=== PATIENT | female | born 1975 | race Caucasian/White ===

== ENCOUNTER → 2018-06-20 16:45 | Outpatient (CLI) | payer OTHER, SELFPAY ==
--- NOTE | 2018-06-20 16:46 | BI_ITS ---
MAMMOGRAPHY - BILATERAL SCREENING 3-D KORTNEY SYNTHESIS REASON FOR EXAM: Female, 43 years old. Bilateral Screening 3-D tomosynthesis PERTINENT HISTORY: Grandmother with breast cancer.. TECHNIQUE: 2-D mammograms and 3-D Kortney synthesis of the breast (s) were performed. CAD was performed. COMPARISON: 12/01/2016 FINDINGS: The breast composition is heterogeneously dense that can obscure small breast masses. Scattered benign calcifications are seen. No dense spiculated masses or suspicious microcalcifications are identified. No architectural distortion is identified. There is no skin thickening or retraction. There has been no significant change since the prior study. BI/SCREENING MAMM (CAD), BILAT IMPRESSION: No mammographic signs of malignancy. Routine yearly mammograms recommended. ASSESSMENT CATEGORY: BIRADS Category 2: Benign. A letter regarding these results will be sent to the patient by the facility within 30 days. FOLLOW UP RECOMMENDATION: Yearly follow up mammogram recommended. (A) Approximately 10% of breast cancers are not detected by mammography. A normal mammogram should not delay biopsy of a clinically suspicious abnormality. Electronically Signed: Juan Luis Rios MD at 7:48 EDT , Service support ,
== END ==
PROVIDERS: Family Provider Family Medicine; PCP Family Medicine; Visit Provider Obstetrics & Gynecology
DX: Z12.31 Encounter for screening mammogram for malignant neoplasm of breast (principal)
CPT/HCPCS: 77063; 77067

== ENCOUNTER → 2018-11-01 10:04 | Outpatient (CLI) | payer OTHER, SELFPAY ==
--- NOTE | 2018-11-01 10:09 | RAD_ITS ---
STUDY: X-RAY - THORACIC SPINE REASON FOR EXAM: Female, 43 years old. With the lower thoracic pain for 6 months after a broad both right. TECHNIQUE: 3 view(s) of the thoracic spine were obtained. COMPARISON: None. FINDINGS: Normal kyphosis of the thoracic spine. There is no substantial scoliosis. Normal thoracic vertebrae and endplates. Normal disc space heights. There is no evidence of acute fracture or loss of vertebral axial height. The soft tissue structures are unremarkable. RAD/Thoracic Spine 3 Views IMPRESSION: Normal x-ray examination of the thoracic spine. Electronically Signed: Jose Bautista DO at 21:04 EST Tel [phone], Service support ,
== END ==
LOC: MTRAD 10:08 → HPRAD 10:11
PROVIDERS: Family Provider Family Medicine; PCP Family Medicine; Referring Provider Family Medicine; Visit Provider Family Medicine
DX: M54.6 Pain in thoracic spine (principal)
CPT/HCPCS: 72072

== ENCOUNTER 2018-11-16 14:45 | Outpatient (RCR) | payer OTHER, SELFPAY ==
--- NOTE | 2018-02-28 18:50 | MASS.EVAL ---
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 She was referred for massage therapy with a diagnosis of muscle ache. She reports pain in her head,neck and shoulders primarily. She describes the pain as an ache or tension. She presents today with no complaints; however, explains that most days she suffers from muscle tension. Her medications include Trintellix and control. She states that her health is very good with no limits in daily activities. She denies any disc bulge or fusion. OBJECTIVE: Upon examination and palpation I found this patient to have tightness throughout her suboccipitals, trap muscles, scalenes, levators, pectorals and rhomboids. Her thoracic and lumbar paraspinals were tight and ropey. Her first treatment consisted of MFR, muscle stripping and PNMT to her cervicals. A heat pack was used to ease muscle tension. ASSESMENT: Using various techniques I was able to achieve very good muscle release. This patient tolerated deep pressure well and relaxed easily. PLAN: I plan to see this patient on an as-needed basis for a total of 10 visits in 2018. I will focus on her head, neck and shoulders. Jihan Carranza LMT
--- NOTE | 2018-02-28 19:01 | MASS.EVAL_ITS ---
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 She was referred for massage therapy with a diagnosis of muscle ache. She reports pain in her head,neck and shoulders primarily. She describes the pain as an ache or tension. She presents today with no complaints; however, explains that most days she suffers from muscle tension. Her medications include Trintellix and control. She states that her health is very good with no limits in daily activities. She denies any disc bulge or fusion. OBJECTIVE: Upon examination and palpation I found this patient to have tightness throughout her suboccipitals, trap muscles, scalenes, levators, pectorals and rhomboids. Her thoracic and lumbar paraspinals were tight and ropey. Her first treatment consisted of MFR, muscle stripping and PNMT to her cervicals. A heat pack was used to ease muscle tension. ASSESMENT: Using various techniques I was able to achieve very good muscle release. This patient tolerated deep pressure well and relaxed easily. PLAN: I plan to see this patient on an as-needed basis for a total of 10 visits in 2018. I will focus on her head, neck and shoulders. Jihan Carranza LMT
--- NOTE | 2018-05-04 16:00 | DT_ITS ---
This patient was seen during an EMR downtime April 30, 2018 - May 07, 2018. This patient may have a combination of paper and electronic documentation or all paper documentation. All documentation is viewable within the e-chart portion of [facility] for each patient visit.
--- NOTE | 2018-11-23 14:52 | MASS.DISCH ---
Massage Therapy Discharge Summary: Discharge Date: 11/23/2018 Benji was seen for a massotherapy evaluation on 02/09/2018 with the diagnosis of muscle ache. She was treated with five sessions of massage therapy consisting of deep pressure soft tissue techniques, myofascial release and trigger point compression to her cervical, thoracic, lower back, upper extremities and hips. She responded well to the therapy by reporting decreased tension and pain throughout her head, neck, shoulders. Her goals for therapy were met throughout the treatment sessions. At this time this patient is being discharged from our care at [facility] facility. Jihan Carranza LMT
== END 2018-11-26 08:45 | disposition home or self-care (01) ==
LOC: MASS 14:45
PROVIDERS: Family Provider Family Medicine; PCP Family Medicine; Visit Provider Family Medicine
DX: M79.1 Myalgia (principal)
CPT/HCPCS: 97124

== ENCOUNTER → 2019-04-04 08:42 | Outpatient (CLI) | payer OTHER, SELFPAY ==
[2019-04-04 08:30] VITALS: BMI 25.9
--- NOTE | 2019-04-04 08:52 | RAD_ITS ---
STUDY: X-RAY - LEFT FOOT CLINICAL: Female, 43 years old. Pain along the fourth and fifth digits following injury. TECHNIQUE: 3 view(s) of the foot. COMPARISON: None. FINDINGS: Normal talus, calcaneus, and tarsal bones. Normal visualized subtalar, talonavicular, calcaneocuboid, tarsal and tarsometatarsal articulations. Normal metatarsi. Normal metatarsophalangeal joint of the great toe. Normal tibial and fibular sesamoid bones. Normal interphalangeal joint of the great toe. Normal phalanges of the great toe. Normal second through fifth metatarsophalangeal joints. Nondisplaced oblique fracture of the mid portion of the proximal phalanx of the fourth digit as well as a nondisplaced transverse fracture along the distal aspect of the proximal phalanx of the fifth digit. The soft tissue structures are unremarkable. RAD/Foot min 3 Views IMPRESSION: Nondisplaced oblique fracture of the midportion of the proximal phalanx of the fourth digit as well as a nondisplaced transverse fracture along the distal aspect of the proximal phalanx of the fifth digit. Electronically Signed: Chandra Juan, at 9:25 EDT , Service support ,
== END ==
PROVIDERS: Family Provider Family Medicine; PCP Family Medicine; Referring Provider Physician Assistant; Visit Provider Physician Assistant
DX: M79.675 Pain in left toe(s) (principal)
CPT/HCPCS: 73630

== ENCOUNTER → 2019-04-19 | Outpatient (CLI) | payer OTHER, SELFPAY ==
[2019-04-04 09:19] VITALS: BMI 25.9
--- NOTE | 2019-04-19 09:28 | RAD_ITS ---
STUDY: X-RAY - LEFT FOOT CLINICAL: Fracture. TECHNIQUE: 3 view(s) of the foot. COMPARISON: Radiographs 04/04/2019. FINDINGS: Normal talus, calcaneus, and tarsal bones. Normal visualized subtalar, talonavicular, calcaneocuboid, tarsal and tarsometatarsal articulations. Normal metatarsi. Normal metatarsophalangeal joint of the great toe. Normal tibial and fibular sesamoid bones. Normal interphalangeal joint of the great toe. Normal phalanges of the great toe. Normal second through fifth metatarsophalangeal joints. There is no interval change of the nondisplaced fractures of the proximal phalanges of the fourth and fifth digits. The soft tissue structures are unremarkable. RAD/Foot min 3 Views IMPRESSION: No interval change of the fourth and fifth proximal phalangeal fractures. Electronically Signed: Gutierrez Quiñonez MD at 15:30 EDT Tel , Service support ,
== END | disposition home or self-care (01) ==
LOC: HPRAD 09:27
PROVIDERS: Family Provider Family Medicine; PCP Family Medicine; Referring Provider Orthopaedic Surgery; Visit Provider Orthopaedic Surgery
DX: S92.912A Unspecified fracture of left toe(s), initial encounter for closed fracture (principal)
CPT/HCPCS: 73630

== ENCOUNTER → 2019-05-16 | Outpatient (CLI) | payer OTHER, SELFPAY ==
[2019-05-16 09:08] VITALS: BMI 25.9
--- NOTE | 2019-05-16 09:13 | RAD_ITS ---
STUDY: X-RAY - LEFT FOOT CLINICAL: Status post fracture 8 weeks ago. TECHNIQUE: 3 view(s) of the foot. COMPARISON: Radiographs 04/19/2019. FINDINGS: Normal talus, calcaneus, and tarsal bones. Normal visualized subtalar, talonavicular, calcaneocuboid, tarsal and tarsometatarsal articulations. Normal metatarsi. Normal metatarsophalangeal joint of the great toe. Normal tibial and fibular sesamoid bones. Normal interphalangeal joint of the great toe. Normal phalanges of the great toe. Normal second through fifth metatarsophalangeal joints. There is no interval change of the nondisplaced fractures of the proximal fourth and fifth phalanges. The soft tissue structures are unremarkable. RAD/Foot min 3 Views IMPRESSION: No interval change of the fourth and fifth proximal phalangeal fractures. Electronically Signed: Gutierrez Quiñonez MD at 10:38 EDT Tel , Service support ,
== END | disposition home or self-care (01) ==
LOC: HPRAD 09:12
PROVIDERS: Family Provider Family Medicine; PCP Family Medicine; Referring Provider Orthopaedic Surgery; Visit Provider Orthopaedic Surgery
DX: S92.912A Unspecified fracture of left toe(s), initial encounter for closed fracture (principal)
CPT/HCPCS: 73630

== ENCOUNTER → 2019-06-28 | Outpatient (CLI) | payer OTHER, SELFPAY ==
[2019-05-16 09:08] VITALS: BMI 25.9
--- NOTE | 2019-06-28 14:34 | BI_ITS ---
MAMMOGRAPHY - BILATERAL SCREENING REASON FOR EXAM: Female, 44 years old. Routine annual screening examination. PERTINENT HISTORY: Grandmother with breast cancer. TECHNIQUE: Digital bilateral breast kortney (3D mammographic acquisition) in the CC and MLO projections. 2-D mediolateral oblique (MLO) and craniocaudad (CC) views of both breasts were obtained. CAD: Full Field Digital Mammography with Computer Added Detection was performed. COMPARISON: Comparison is made with prior study dated June 20, 2018 and December 01, 2016. FINDINGS: Breast Composition: The breasts are heterogeneously dense, which may obscure small masses. There are no dominant masses or suspicious calcifications. I suspect a 1.3 cm x 1 cm well-defined nodule in the upper deep lateral portion of the left breast. Correlation with ultrasound is recommended. No other significant abnormalities are identified. BI/SCREEN MAMM (CAD) W/KORTNEY BILAT IMPRESSION: I suspect a 1.3 cm x 1 cm well-defined nodule in the upper lateral deep portion of the left breast as described. Correlation with ultrasound is recommended. ASSESSMENT CATEGORY: BIRADS Category 0: Incomplete. Need additional imaging evaluation. A letter regarding these results will be sent to the patient by the facility within 30 days. Approximately 10% of breast cancers are not detected by mammography. A normal mammogram should not delay biopsy of a clinically suspicious abnormality. [id number] Electronically Signed: Chandra Juan, at 15:25 EDT , Service support ,
--- NOTE | 2019-06-28 15:31 | US_ITS ---
STUDY: ULTRASOUND BREAST - LEFT REASON FOR EXAM: Female, 44 years old. Abnormal screening mammogram. TECHNIQUE: Axial and longitudinal images of the LEFT breast were performed with a high resolution ultrasound transducer. COMPARISON: Comparison is made with prior mammogram done earlier today. FINDINGS: LEFT Breast: There is a 1.3 cm Bard 0.7 cm x 0.4 cm well-defined hypoechoic solid nodule with cystic component along its superior aspect measuring 4.2 mm x 3.7 mm. This most likely represents a fibroadenoma. A follow-up sonogram in 4 months is recommended. US/Breast Limited Unilateral IMPRESSION: The mammographic abnormality course causing 1.3 cm x 0.7 cm x 0.4 cm well-defined hypoechoic nodule with a cystic component and the 1:00 position of the breast at 2 cm from nipple. This corresponds to the mammographic findings. This most likely represents a fibroadenoma. A four-month follow-up sonogram is recommended. ASSESSMENT CATEGORY: BIRADS Category 0: Incomplete. Need additional imaging evaluation. A letter regarding these results will be sent to the patient by the facility within 30 days. Electronically Signed: Chandra Juan, at 8:43 EDT , Service support ,
== END | disposition home or self-care (01) ==
PROVIDERS: Family Provider Family Medicine; PCP Family Medicine; Referring Provider Obstetrics & Gynecology; Visit Provider Obstetrics & Gynecology
DX: Z12.31 Encounter for screening mammogram for malignant neoplasm of breast (principal); R92.8 Other abnormal and inconclusive findings on diagnostic imaging of breast
CPT/HCPCS: 76642; 77063; 77067

== ENCOUNTER → 2019-11-11 13:19 | Outpatient (CLI) | payer OTHER, SELFPAY ==
[2019-05-16 09:08] VITALS: BMI 25.9
--- NOTE | 2019-11-11 13:22 | US_ITS ---
STUDY: ULTRASOUND BREAST - LEFT REASON FOR EXAM: Female, 44 years old. 4 month follow-up examination. TECHNIQUE: Axial and longitudinal images of the LEFT breast were performed with a high resolution ultrasound transducer. # OF IMAGES: 16 COMPARISON: Comparison is made with prior sonogram dated June 28, 2019. FINDINGS: LEFT Breast: There is a persistent 1.4 cm x 1 cm x 0.5 cm well-defined hypoechoic/solid nodule at the 1:00 position the breast at 2 cm from the nipple. This is essentially unchanged. Tissue diagnosis is recommended for further evaluation. US/Breast Limited Unilateral IMPRESSION: Essentially stable hypoechoic/cystic nodule at the 1:00 position breast at 2 cm from the nipple. Tissue diagnosis is recommended. ASSESSMENT CATEGORY: BIRADS Category 4: Suspicious - Biopsy Should Be Considered. A letter regarding these results will be sent to the patient by the facility within 30 days. Electronically Signed: Chandra Juan, at 15:04 EST , Service support ,
== END ==
PROVIDERS: Family Provider Family Medicine; PCP Family Medicine; Referring Provider Obstetrics & Gynecology; Visit Provider Obstetrics & Gynecology
DX: R92.8 Other abnormal and inconclusive findings on diagnostic imaging of breast (principal)
CPT/HCPCS: 76642

== ENCOUNTER → 2019-11-21 12:57 | Outpatient (CLI) | payer OTHER, SELFPAY ==
[2019-11-21 08:59] VITALS: BMI 25.9
--- NOTE | 2019-11-21 09:19 | BRBX_PTH ---
PATIENT: EMILY ROBERTS LOC: [place] U#:[id number] AGE/SX: 50/F ROOM: RE11/21/[address]: Dr. Merrill Green MD : 1975 BED: DIS: SPEC #: [id number] RECD: 11/21/19 12:56 STATUS: PATRICIA CAPO #: [id number] LESTER: 11/21/19 09:[address]: Merrill Green DEPT: SURGICAL PATHOLOGY RECD BY: Janusz Garner ENTERED: 11/21/19 13:21 SP TYPE: BREAST BX OTHR DR: Dr. Maximus Choudhary MD Tissues: Left breast, NOS Procedures: Surgery Specimen Level IV HEADER OPERATION: Left breast biopsy PRE-OP DIAGNOSIS: Abnormal left breast ultrasound TISSUE SUBMITTED: Left breast tissue MICROSCOPIC DIAGNOSIS Left breast, ultrasound-guided biopsy: Fibrocystic change. Focal intraductal hyperplasia without atypia. No evidence of malignancy. AM:rudy 11/22/19 MICROSCOPIC DESCRIPTION Slides are reviewed. GROSS DESCRIPTION Received in fixative is one container labeled with the patient's name and designated left breast. The specimen consists of an elongated fragment of light schuler-yellow soft tissue measuring 1.2 cm in length and 1 cm in average diameter. The specimen is submitted in its entirety in one cassette. / AM:rudy 11/21/19 TC:5 CPT: 56013
== END ==
PROVIDERS: Family Provider Family Medicine; PCP Family Medicine; Referring Provider Surgery; Visit Provider Surgery
DX: R92.8 Other abnormal and inconclusive findings on diagnostic imaging of breast (principal)
CPT/HCPCS: 88305

== ENCOUNTER → 2020-07-23 14:11 | Outpatient (CLI) | payer OTHER, SELFPAY ==
[2019-11-21 08:59] VITALS: BMI 25.9
--- NOTE | 2020-07-23 14:14 | BI_ITS ---
MAMMOGRAPHY - BILATERAL SCREENING REASON FOR EXAM: Female, 45 years old. Routine annual screening examination. PERTINENT HISTORY: Grandmother with breast cancer. Prior left ultrasound breast biopsy. TECHNIQUE: Digital bilateral breast kortney (3D mammographic acquisition) in the CC and MLO projections. 2-D mediolateral oblique (MLO) and craniocaudad (CC) views of both breasts were obtained. CAD: Full Field Digital Mammography with Computer Added Detection was performed. COMPARISON: Comparison is made with prior study dated 06/28/2019 and 06/20/2018. FINDINGS: Breast Composition: The breasts are heterogeneously dense, which may obscure small masses. There are no dominant masses or suspicious calcifications. Since prior study, a tissue clip marker is seen in the upper lateral portion of the left breast the site of the small nodule. No other significant abnormalities are identified. BI/SCREEN MAMM (CAD) W/KORTNEY BILAT IMPRESSION: Status post biopsy of the nodular density in the upper deep lateral portion of left breast. Yearly follow-up mammogram recommended. (A) ASSESSMENT CATEGORY: BIRADS Category 2: Benign. A letter regarding these results will be sent to the patient by the facility within 30 days. Approximately 10% of breast cancers are not detected by mammography. A normal mammogram should not delay biopsy of a clinically suspicious abnormality. [id number] Electronically Signed: Chandra Juan, at 15:25 EDT , Service support ,
== END ==
PROVIDERS: PCP Family Medicine; Referring Provider Obstetrics & Gynecology; Visit Provider Obstetrics & Gynecology
DX: Z12.31 Encounter for screening mammogram for malignant neoplasm of breast (principal)
CPT/HCPCS: 77063; 77067

== ENCOUNTER → 2021-08-04 09:39 | Outpatient (CLI) | payer OTHER, SELFPAY | PROVIDERS: PCP Family Medicine; Visit Provider Obstetrics & Gynecology | DX: Z00.00 Encounter for general adult medical examination without abnormal findings (principal) ==

== ENCOUNTER → 2021-08-04 09:45 | Outpatient (CLI) | payer OTHER, SELFPAY ==
--- NOTE | 2021-08-04 09:47 | BI_ITS ---
MAMMOGRAPHY - BILATERAL SCREENING REASON FOR EXAM: Female, 46 years old. Routine annual screening examination. PERTINENT HISTORY: Grandmother with breast cancer. Prior left ultrasound-guided breast biopsy. TECHNIQUE: Digital bilateral breast kortney (3D mammographic acquisition) in the CC and MLO projections. 2-D mediolateral oblique (MLO) and craniocaudad (CC) views of both breasts were obtained. CAD: Full Field Digital Mammography with Computer Added Detection was performed. COMPARISON: Comparison is made with prior study 07/23/2020 and 06/28/2000 FINDINGS: Breast Composition: The breasts are heterogeneously dense, which may obscure small masses. There are no dominant masses or suspicious calcifications. Once again, a tissue clip marker is seen in the upper lateral portion of the left breast. No other significant abnormalities are identified. There has been no significant change since the prior study. BI/SCRN MAMM (CAD)W/KORTNEY BILAT IMPRESSION: Stable bilateral screening mammogram. Yearly follow-up mammogram recommended. (A) ASSESSMENT CATEGORY: BIRADS Category 2: Benign. A letter regarding these results will be sent to the patient by the facility within 30 days. Approximately 10% of breast cancers are not detected by mammography. A normal mammogram should not delay biopsy of a clinically suspicious abnormality. [id number] Electronically Signed: Chandra Juan MD at 11:31 EDT , Service support ,
== END ==
PROVIDERS: PCP Family Medicine; Visit Provider Obstetrics & Gynecology
DX: Z12.31 Encounter for screening mammogram for malignant neoplasm of breast (principal)
CPT/HCPCS: 77063; 77067

== ENCOUNTER → 2022-09-28 | Outpatient (CLI) | payer OTHER, SELFPAY ==
--- NOTE | 2022-09-28 09:40 | BI_ITS ---
MAMMOGRAPHY - BILATERAL SCREENING REASON FOR EXAM: Female, 47 years old. Routine annual screening examination. PERTINENT HISTORY: Grandmother with breast cancer. History of prior left ultrasound-guided breast biopsy. TECHNIQUE: Digital bilateral breast kortney (3D mammographic acquisition) in the CC and MLO projections. 2-D mediolateral oblique (MLO) and craniocaudad (CC) views of both breasts were obtained. CAD: Full Field Digital Mammography with Computer Added Detection was performed. COMPARISON: Comparison is made with prior study dated 08/04/2021 and 07/23/2020. FINDINGS: Breast Composition: The breasts are heterogeneously dense, which may obscure small masses. There are no dominant masses or suspicious calcifications. Once again, a tissue clip marker is seen in the upper lateral portion of the left breast anteriorly. No other significant abnormalities are identified. There has been no significant change since the prior study. BI/SCRN MAMM (CAD)W/KORTNEY BILAT IMPRESSION: Stable bilateral screening mammogram. Yearly follow-up mammogram recommended. (A) ASSESSMENT CATEGORY: BIRADS Category 2: Benign. A letter regarding these results will be sent to the patient by the facility within 30 days. Approximately 10% of breast cancers are not detected by mammography. A normal mammogram should not delay biopsy of a clinically suspicious abnormality. [id number] Electronically Signed: Chandra Juan MD at 11:31 EDT ,
== END | disposition home or self-care (01) ==
LOC: OPBI 09:38
PROVIDERS: PCP Family Medicine; Visit Provider Family Medicine
DX: Z12.31 Encounter for screening mammogram for malignant neoplasm of breast (principal)
CPT/HCPCS: 77063; 77067

== ENCOUNTER → 2024-03-28 | Outpatient (CLI) | payer OTHER, SELFPAY ==
--- NOTE | 2024-03-28 12:16 | BI_ITS ---
MAMMOGRAPHY - BILATERAL SCREENING REASON FOR EXAM: Female, 48 years old. Routine annual screening examination. PERTINENT HISTORY: Grandmother with breast cancer. Prior left ultrasound-guided breast biopsy. TECHNIQUE: Digital bilateral breast kortney (3D mammographic acquisition) in the CC and MLO projections. 2-D mediolateral oblique (MLO) and craniocaudad (CC) views of both breasts were obtained. CAD: Full Field Digital Mammography with Computer Added Detection was performed. COMPARISON: Comparison is made with prior study dated September 28, 2022 and August 04, 2021. FINDINGS: Breast Composition: The breasts are heterogeneously dense, which may obscure small masses. There is a 6.1 mm x 2.7 mm well-defined nodule in the deep upper slightly lateral aspect of the right breast. Correlation with ultrasound is recommended. Once again, a tissue clip marker is seen in the upper lateral portion of the left breast anteriorly. No other significant abnormalities are identified. There has been no significant change since the prior study. BI/SCRN MAMM (CAD)W/KORTNEY BILAT IMPRESSION: 6.1 mm x 2.7 mm well-defined nodule in the slightly upper lateral aspect of the right breast. Correlation with ultrasound recommended. ASSESSMENT CATEGORY: BIRADS Category 0: Incomplete. Need additional imaging evaluation. A letter regarding these results will be sent to the patient by the facility within 30 days. Approximately 10% of breast cancers are not detected by mammography. A normal mammogram should not delay biopsy of a clinically suspicious abnormality. [id number] Electronically Signed: Chandra Juan MD at 13:25 EDT ,
== END | disposition home or self-care (01) ==
LOC: OPBI 12:15
PROVIDERS: PCP Family Medicine; Referring Provider Obstetrics & Gynecology; Visit Provider Obstetrics & Gynecology
DX: Z12.31 Encounter for screening mammogram for malignant neoplasm of breast (principal)
CPT/HCPCS: 77063; 77067

== ENCOUNTER → 2024-04-01 | Outpatient (CLI) | payer OTHER, SELFPAY ==
--- NOTE | 2024-04-01 07:30 | US_ITS ---
STUDY: ULTRASOUND BREAST - RIGHT REASON FOR EXAM: Female, 48 years old. Abnormal screening mammogram. TECHNIQUE: Axial and longitudinal images of the RIGHT breast were performed with a high resolution ultrasound transducer. # OF IMAGES: 43 COMPARISON: Comparison is made with prior mammogram dated March 28, 2024. FINDINGS: RIGHT Breast: The mammographic abnormality corresponds to a 6 mm x 5 mm x 3 mm benign-appearing lymph node at the 10:00 position of the breast at 2 cm from the nipple. US/Breast Limited Unilateral IMPRESSION: The mammographic abnormality corresponds to 6 mm x 5 mm x 3 mm benign-appearing lymph node at the 10:00 position of the breast at 2 cm from the nipple. Routine mammographic follow-up recommended. ASSESSMENT CATEGORY: BIRADS Category 2: Benign. A letter regarding these results will be sent to the patient by the facility within 30 days. Electronically Signed: Chandra Juan MD at 9:27 EDT ,
== END | disposition home or self-care (01) ==
LOC: US 07:18
PROVIDERS: PCP Family Medicine; Referring Provider Obstetrics & Gynecology; Visit Provider Obstetrics & Gynecology
DX: N63.10 Unspecified lump in the right breast, unspecified quadrant (principal)
CPT/HCPCS: 76642

== ENCOUNTER → 2025-08-12 | Outpatient (CLI) | payer OTHER, SELFPAY ==
--- NOTE | 2025-08-12 09:23 | BI_ITS ---
EXAM: SCRN MAMM (CAD)W/KORTNEY BILAT DATE: 08/12/2025 CLINICAL HISTORY: F, Age 50 y/o , SCREENING TECHNIQUE: Procedure Code: [id number] Modality: MG Procedure: SCRN MAMM (CAD)W/KORTNEY BILAT COMPARISON: Prior exam(s) were compared FINDINGS: TISSUE DENSITY: The breasts are heterogeneously dense, which may obscure small masses. Bilateral Breast Mammographic Findings: No suspicious masses, calcifications or other abnormalities are identified. BI/SCRN MAMM (CAD)W/KORTNEY BILAT IMPRESSION: No mammographic evidence of malignancy. OVERALL FINAL ASSESSMENT BI-RADS 1: NEGATIVE. RECOMMENDATION: Routine annual follow-up in 1 Year A letter with findings and recommendations will be mailed to the patient. Reading Location: [id number]
== END | disposition home or self-care (01) ==
LOC: OPBI 09:22
PROVIDERS: PCP Family Medicine; Referring Provider Obstetrics & Gynecology; Visit Provider Obstetrics & Gynecology
DX: Z12.31 Encounter for screening mammogram for malignant neoplasm of breast (principal)
CPT/HCPCS: 77063; 77067